=== PATIENT | female | born 1955 | race Caucasian/White ===

== ENCOUNTER 2021-04-05 12:45 | Outpatient (CLI) | payer MEDICARE, MEDICAID, SELFPAY | END 2021-04-05 12:46 | disposition home or self-care (01) | LOC: CHSOUTPT 12:54 | PROVIDERS: PCP Specialist; Visit Provider Specialist | DX: C44.729 Squamous cell carcinoma of skin of left lower limb, including hip (principal); C44.712 Basal cell carcinoma of skin of right lower limb, including hip | CPT/HCPCS: 88305 ==

== ENCOUNTER 2021-06-07 15:14 | Outpatient (CLI) | payer MEDICARE, MEDICAID, SELFPAY | END 2021-06-07 15:15 | disposition home or self-care (01) | PROVIDERS: PCP Family Medicine; Visit Provider Specialist | DX: C44.722 Squamous cell carcinoma of skin of right lower limb, including hip (principal) | CPT/HCPCS: 88305 ==